=== PATIENT | male | born 1965 | race Asian ===

== ENCOUNTER 2018-04-17 07:48 | Emergency (ER) | payer OTHER ==
[~2018-04-17] VITALS: Ht 175.3 cm; Wt 73.9 kg
[2018-04-17 07:52] VITALS: Ht 175.3 cm; Wt 73.9 kg
[2018-04-17 09:38] LABS: CALCIUM 9.7 mg/dL (8.5-10.1); CARBON DIOXIDE 22.1 mmol/L (21-32); CHLORIDE SERUM 102 mmol/L (98-107); CREATININE SERUM 0.8 mg/dL (0.7-1.3); GFR1 > 60 mL/min; GLUCOSE SERUM 180 mg/dL (74-106); POTASSIUM SERUM 4.6 mmol/L (3.5-5.1); SODIUM SERUM 133 mmol/L (136-145)
[2018-04-17 09:39] LABS: BASOPHIL % 0.1 % (0-2); RED CELL DISTRIBUTION WIDTH 13.4 % (11.5-14.5)
[2018-04-17 09:50] LABS: ALBUMIN 3.7 g/dL (3.4-5.0); ALKALINE PHOSPHATASE 121 U/L (46-116); ALT/SGPT 77 U/L (16-63); AMYLASE 112 U/L (25-115); AST/SGOT 42 U/L (15-37); CHOLESTEROL 132 mg/dL (<200); HDL CHOLESTEROL 61 mg/dL (40-60); LIPASE 286 IU/L (73-393); T4(THYROXINE) 9.5 ug/dL (4.7-13.3); TOTAL PROTEIN, SERUM 7.5 g/dL (6.4-8.2)
[2018-04-17 10:12] LABS: PLATELET COUNT 102 x10^3mcL (130-400)
[2018-04-17 11:26] LABS: microscopic required? NO
[2018-04-17 11:53] LABS: UA SPECIFIC GRAVITY 1.025 (1.005-1.035); urine erythrocyte NEGATIVE (NEGATIVE)
[2018-04-17 11:58] LABS: AMPHETAMINE QUAL UR NONE DETECTED (See below)
[2018-04-17 12:01] VITALS: BP 143/90
== END 2018-04-17 12:58 | disposition home or self-care (01) ==
LOC: ED 07:48
PROVIDERS: Emergency Medicine
DX: K80.70 Calculus of gallbladder and bile duct without cholecystitis without obstruction (principal); D89.3 Immune reconstitution syndrome; I10 Essential (primary) hypertension; Z94.1 Heart transplant status; Z94.0 Kidney transplant status; Z88.1 Allergy status to other antibiotic agents; Z88.8 Allergy status to other drugs, medicaments and biological substances
CPT/HCPCS: 36415; 36600; 83880; J2930; Q0092

== ENCOUNTER 2018-05-09 02:51 | Inpatient (IN) | payer OTHER ==
[~2018-05-09] VITALS: Ht 177.8 cm; Wt 72.1 kg
[2018-05-09 02:57] VITALS: Ht 177.8 cm; Wt 72.1 kg
[2018-05-09 03:55] LABS: RED CELL DISTRIBUTION WIDTH 13.9 % (11.5-14.5)
[2018-05-09 03:56] LABS: CALCIUM 9.9 mg/dL (8.5-10.1); CARBON DIOXIDE 26.1 mmol/L (21-32); CHLORIDE SERUM 103 mmol/L (98-107); CREATININE SERUM 1.1 mg/dL (0.7-1.3); GFR1 > 60 mL/min; GLUCOSE SERUM 132 mg/dL (74-106); PLATELET COUNT 126 x10^3mcL (130-400); SODIUM SERUM 138 mmol/L (136-145)
[2018-05-09 04:02] LABS: ALKALINE PHOSPHATASE 133 U/L (46-116); ALT/SGPT 64 U/L (16-63); AST/SGOT 39 U/L (15-37); BILIRUBIN TOTAL 0.8 mg/dL (0.20-1.00); TOTAL PROTEIN, SERUM 8.1 g/dL (6.4-8.2)
[2018-05-09] MEDS ORDERED: MAGNESIUM OXID400 MG PO (05:14)
[2018-05-09] MEDS ORDERED: CELLCEPT250 MG (05:15)
[2018-05-09] MEDS ORDERED: PROGRAF1 MG PO (05:15)
[2018-05-09] MEDS ORDERED: OXYCODONE HYDROC5 M2 PO (05:16)
[2018-05-09 06:03] LABS: CHOLESTEROL/HDL RATIO 2.8; MAGNESIUM 1.6 mg/dL (1.8-2.4); PHOSPHOROUS 3.4 mg/dL (2.5-4.9)
[2018-05-09 06:11] LABS: FREE T4 1.46 ng/dL (0.76-1.46); FREE THYROXINE INDEX 3.6 ug/dL (1.4-4.5); T4(THYROXINE) 10.8 ug/dL (4.7-13.3)
[2018-05-09 07:29] LABS: T3 TOTAL 1.06 ng/mL
[2018-05-09 08:28] VITALS: BP 117/77
[2018-05-09 10:09] LABS: microscopic required? NO
[2018-05-09 10:49] LABS: UA SPECIFIC GRAVITY 1.025 (1.005-1.035); urine erythrocyte NEGATIVE (NEGATIVE)
[2018-05-09 11:02] LABS: AMPHETAMINE QUAL UR NONE DETECTED (See below)
[2018-05-09 13:10] VITALS: BP 141/93
[2018-05-09 16:30] VITALS: BP 141/93
[2018-05-09 16:43] VITALS: BP 129/77
== END 2018-05-09 17:18 | disposition home or self-care (01) | DRG 313 ==
LOC: ED 02:51 → DU 04:57
PROVIDERS: Emergency Medicine; Family Medicine
DX: R07.89 Other chest pain (principal); Z94.1 Heart transplant status; Z94.0 Kidney transplant status; E11.9 Type 2 diabetes mellitus without complications; E83.42 Hypomagnesemia; E11.65 Type 2 diabetes mellitus with hyperglycemia; E78.1 Pure hyperglyceridemia; R74.0 Nonspecific elevation of levels of transaminase and lactic acid dehydrogenase [LDH]; Z68.22 Body mass index [BMI] 22.0-22.9, adult; Z79.84 Long term (current) use of oral hypoglycemic drugs
CPT/HCPCS: 82962; 83880; 84439; 85378; J1815; J7030; J7507; J7517; Q0092

== ENCOUNTER 2019-05-20 01:35 | Emergency (ER) | payer OTHER ==
[~2019-05-20] VITALS: Ht 175.3 cm; Wt 77.7 kg
[~2019-05-20 01:35] MED LIST: CELLCEPT250 MG; MAGNESIUM OXID400 MG PO; OXYCODONE HYDROC5 M2 PO; PROGRAF1 MG PO
[2019-05-20 01:42] VITALS: Ht 175.3 cm; Wt 77.7 kg
[2019-05-20 04:22] LABS: BASOPHIL % 0.5 % (0-2); PLATELET COUNT 99 x10^3mcL (130-400); RED CELL DISTRIBUTION WIDTH 13.3 % (11.5-14.5)
[2019-05-20 04:30] LABS: CALCIUM 9.3 mg/dL (8.5-10.1); CARBON DIOXIDE 26.6 mmol/L (21-32); CREATININE SERUM 1.4 mg/dL (0.7-1.3)
[2019-05-20 04:35] LABS: ALBUMIN 3.5 g/dL (3.4-5.0); BILIRUBIN TOTAL 0.58 mg/dL (0.20-1.00); TOTAL PROTEIN, SERUM 7.1 g/dL (6.4-8.2)
[2019-05-20 06:26] VITALS: BP 146/103
== END 2019-05-20 06:26 | disposition home or self-care (01) ==
LOC: ED 01:35
PROVIDERS: Emergency Medicine
DX: R07.0 Pain in throat (principal); R06.00 Dyspnea, unspecified; Z88.1 Allergy status to other antibiotic agents
CPT/HCPCS: 36415; Q0092